=== PATIENT | female | born 1995 ===

== ENCOUNTER 2022-12-30 23:35 | Outpatient (CLI) | payer SELFPAY ==
[2022-12-30 23:49] VITALS: BP 100/52; PULSE 75
[2022-12-30 23:51] VITALS: TEMP 37
[2022-12-30 23:53] VITALS: RESP 15
[2022-12-30 23:57] VITALS: BMI 23.0
[2022-12-31] VITALS (12 sets, daily range): BP systolic 86–103; BP diastolic 47–59; PULSE 63–85
[2022-12-31 00:09] LABS: Bilirubin Urine Neg (Negative); Blood Urine Trace (Negative); Glucose Urine UA Norm (Normal); Ketones Urine 3+ (Negative); Leukocyte Esterase Urine 2+ (Negative); Nitrate Urine Positive (Negative); Protein Urine Trace (Negative); Specific Gravity, Urine 1.015 (1.005-1.030); Urine Appearance SL Hazy (CLEAR); Urine Color Yellow (Yellow); Urobilinogen Urine Neg (Negative); pH Urine 7 (5-7)
[2022-12-31 00:10] LABS: Add Urine Culture? Yes; Bacteria Urine 4+ /hpf; Mucus Urine 2+ /hpf; WBC Urine 25-40 /hpf (0-5)
[2022-12-31] MEDS: cefTRIAXone 2,000 MG in sodium chloride 0.9% (plus) 50 ML 100 MG IV (00:55)
[2022-12-31] MEDS: sodium chloride 0.9% 1,000 ML 999 ML IV ×2 (00:56→02:00)
== END 2022-12-31 03:45 | disposition home or self-care (01) ==
LOC: OPOB 23:44 → OBGYN 23:45
PROVIDERS: Visit Provider Obstetrics & Gynecology
DX: O26.899 Other specified pregnancy related conditions, unspecified trimester (principal); M54.9 Dorsalgia, unspecified; Z3A.00 Weeks of gestation of pregnancy not specified
CPT/HCPCS: 36415; 81001; 87077; 87086; 87186; 99211; J0696; J7030